=== PATIENT | female | born 1965 | race Caucasian/White ===

== ENCOUNTER 2020-09-19 16:13 | Emergency (ER) | payer OTHER ==
[~2020-09-19 16:13] MED LIST: BENTYL 10MG CAP10 MG PO; NORCO 7.5-3251 EACH PO; ZOFRAN4 MG PO
[2020-09-19 17:04] LABS: HEMOGLOBIN 12.9 gm/dl (12.3-15.3); RED BLOOD COUNT 4.75 M/UL (4.00-5.10); WHITE BLOOD COUNT 8.3 K/UL (4.5-11.0)
[2020-09-19 17:25] LABS: BUN/CREATININE RATIO 18 (0-10)
[2020-09-19] MEDS ORDERED: PYRIDIUM100 MG PO (18:34)
== END 2020-09-19 18:43 | disposition home or self-care (01) ==
LOC: ER1 16:13
PROVIDERS: Physician Assistant Medical
DX: R33.9 Retention of urine, unspecified (principal); R10.9 Unspecified abdominal pain; M54.9 Dorsalgia, unspecified; R30.0 Dysuria; Z90.89 Acquired absence of other organs; Z90.49 Acquired absence of other specified parts of digestive tract
CPT/HCPCS: 80053; 81001; 85025; 99284

== ENCOUNTER → 2021-01-26 | Outpatient (CLI) | payer OTHER ==
[~2021-01-26] MED LIST changes: +DISULFIRAM250 MG PO; +ESTRADIOL CREAM VG; +LASIX20 MG PO; +PYRIDIUM100 MG PO; +TOPIRAMATE100 MG PO; +TRAZODONE HCL150 MG PO; +VALIUM10 MG VG; +VISTARIL25 MG PO
[2021-01-26 13:13] LABS: HEMOGLOBIN 14.8 gm/dl (12.3-15.3); RED BLOOD COUNT 5.12 M/UL (4.00-5.10); WHITE BLOOD COUNT 5.5 K/UL (4.5-11.0)
[2021-01-26 13:36] LABS: BUN/CREATININE RATIO 9 (0-10)
== END ==
LOC: OPSV2 11:23
PROVIDERS: Obstetrics & Gynecology
DX: Z01.818 Encounter for other preprocedural examination (principal); N81.9 Female genital prolapse, unspecified
CPT/HCPCS: 36415; 71046; 80048; 81001; 85025; 93005

== ENCOUNTER → 2021-02-05 | Day surgery (SDC) | payer OTHER ==
[~2021-02-05] MED LIST changes: +DOCUSATE SODIU250 MG PO; +HYDROCODONE-AC1 EACH PO; +IBUPROFEN600 MG PO
== END | disposition home or self-care (01) ==
LOC: OR 01-29 08:00
DX: N81.9 Female genital prolapse, unspecified (principal); N81.10 Cystocele, unspecified; I10 Essential (primary) hypertension; M19.90 Unspecified osteoarthritis, unspecified site; F41.9 Anxiety disorder, unspecified; F32.A Depression, unspecified; Z79.899 Other long term (current) drug therapy; Z90.710 Acquired absence of both cervix and uterus; Z90.49 Acquired absence of other specified parts of digestive tract
CPT/HCPCS: C1769; J0690; J1100; J2001; J2250; J2405; J2704; J2710; J3010; J7030; J7050; J7120